=== PATIENT | female | born 1965 | race Caucasian/White ===

== ENCOUNTER 2018-06-13 12:57 | Day surgery (SDC) | payer OTHER, BC ==
[~2018-06-13 12:57] MED LIST: CEFAZOLIN 2 GM/50 ML (PMX) 50 ML IVPB; SEVOFLURANE 15 MIN
[2018-06-13 13:53] LABS: ADD MAN DIFF? NO
[2018-06-13 13:55] LABS: WHITE BLOOD COUNT 3.6 10^3/ul (4.8-10.8)
[2018-06-13 13:55] LABS: BASOPHIL # 0.1 10^3/ul (0.0-0.1); BASOPHILS % 1.4 % (0.0-2.0); EOSINOPHILS # 0.1 10^3/ul (0.0-0.5); EOSINOPHILS % 1.7 % (0.0-7.0); HEMATOCRIT 34.8 % (37.0-47.0); HEMOGLOBIN 11.4 g/dl (12.0-16.0); LYMPHOCYTES # 1.9 10^3/ul (0.8-2.9); LYMPHOCYTES % 53.6 % (15.0-51.0); MEAN CORPUSCULAR HEMOGLOBIN 30.6 pg (29.0-33.0); MEAN CORPUSCULAR HGB CONC 32.8 g/dl (32.0-37.0); MEAN CORPUSCULAR VOLUME 93.3 fl (82.0-101.0); MEAN PLATELET VOLUME 9.4 fl (7.4-10.4); MONOCYTE # 0.4 10^3/ul (0.3-0.9); MONOCYTES % 10.2 % (0.0-11.0); NEUTROPHIL # 1.2 10^3/ul (1.6-7.5); NEUTROPHILS % 32.8 % (39.0-77.0); PLATELET COUNT 196 10^3/UL (140-415); RED BLOOD COUNT 3.73 10^6/ul (4.20-5.40); RED CELL DISTRIBUTION WIDTH 13.1 % (11.5-14.5)
[2018-06-13] MEDS: SOD CHLORIDE 0.9% 1,000 ML IV (13:55)
[2018-06-13 14:01] LABS: HOLD TRANSMISSIONS 1
[2018-06-13 14:13] LABS: ALANINE AMINOTRANSFERASE 32 IU/L (13-69); ALBUMIN 4.1 g/dl (3.3-4.9); ALKALINE PHOSPHATASE 47 IU/L (42-121); ANION GAP 7 (5-13); ASPARTATE AMINO TRANSFERASE 38 IU/L (15-46); BILIRUBIN,INDIRECT 0.3 mg/dl (0-1.1); BILIRUBIN,TOTAL 0.3 mg/dl (0.2-1.3); CALCIUM 9.3 mg/dl (8.4-10.2); CARBON DIOXIDE 27 mmol/L (21-31); CHLORIDE 110 mmol/L (97-110); CREATININE 0.87 mg/dl (0.44-1.00); Estimated GFR > 60 mL/min (>60); GLUCOSE 88 mg/dl (70-220); POTASSIUM 3.8 mmol/L (3.5-5.1); TOTAL PROTEIN 6.5 g/dl (6.1-8.1)
[2018-06-13 14:16] LABS: BLOOD UREA NITROGEN 24 mg/dl (7-20)
[2018-06-13 14:19] LABS: SODIUM 144 mmol/L (135-144)
[2018-06-13 14:20] LABS: INR 0.86; PROTIME 11.8 Sec (11.9-14.9); PT RATIO 0.9
[2018-06-13 14:21] LABS: PARTIAL THROMBOPLASTIN TIME 26.7 Sec (23.0-35.0)
[2018-06-13] MEDS ORDERED: PROPOFOL 20 ML (15:33)
[2018-06-13] MEDS ORDERED: CEFAZOLIN 1 GM INJ (15:33)
[2018-06-13] MEDS ORDERED: MIDAZOLAM 1 MG/ML 2 ML INJ (15:33)
[2018-06-13] MEDS ORDERED: FENTAnyl 50 MCG/ML VIAL (15:34)
[2018-06-13] MEDS ORDERED: PHENYLephrine (100 MCG/ML) 10ML SYG (15:45)
[2018-06-13] MEDS ORDERED: ONDANSETRON 4 MG INJ IV ×2 (16:00→16:30)
[2018-06-13] MEDS ORDERED: MEPERIDINE 25 MG INJ IV (16:00)
[2018-06-13] MEDS ORDERED: HYDROmorphONE 1 MG/5 ML IV SYRINGE IV (16:00)
[2018-06-13] MEDS ORDERED: ALBUTEROL 0.083% (NEB) 2.5 MG/3 ML AMP HHN (16:00)
[2018-06-13] MEDS: BUPIVACAINE 0.25%/EPI (SDV) 30 ML INJ (16:04)
[2018-06-13] MEDS ORDERED: BACITRACIN/POLYMYXIN 28.35 GM OINT TOP (16:08)
== END 2018-06-13 18:02 | disposition home or self-care (01) ==
LOC: SDS 12:57
DX: L72.11 Pilar cyst (principal); Z88.6 Allergy status to analgesic agent
CPT/HCPCS: 21011; 71045; 80053; 84703; 85025; 85610; 85730; 88307